=== PATIENT | female | born 1980 | race Two or more races ===

== ENCOUNTER 2025-04-08 10:00 | Day surgery (SDC) | payer OTHER ==
[2025-03-18 08:31] VITALS: BP 128/86
[2025-03-18 08:52] LABS: BASO % 0.9 % (0.1-1.2); EOS # 0.18 (0.04-0.54); EOS % 2.6 % (0.7-7.0); LYMPH # 1.71 (1.18-3.74); LYMPH % 24.6 % (19.3-53.1); MEAN PLATELET VOLUME 10.60 fl (9.4-12.4); MONO # 0.47 (0.24-0.82); MONO % 6.8 % (4.7-12.5); NEUT # 4.53 (1.56-6.13); NEUT % 65.0 % (34.0-71.1); RED CELL DISTRIBUTION WIDTH 11.5 % (11.6-14.4)
[2025-03-18 08:55] LABS: URINE APPEARANCE Clear; URINE BILIRRUBIN Negative (NEGATIVE); URINE BLOOD Negative; URINE COLOR Yellow; URINE GLUCOSE Negative (NEGATIVE); URINE KETONE Negative (NEGATIVE); URINE LEUKOCYTE Negative; URINE NITRATE Negative; URINE PROTEIN Negative (NEGATIVE); URINE UROBILINOGEN 0.2 E.U./dl
[2025-03-18 08:59] LABS: URINE EPITHELIAL CELLS 14.3 uL (0.0-38.8); URINE RBC 12.4 uL (0.0-20.8); URINE WBC 27.2 uL (0.0-23.2)
[2025-03-18 09:15] LABS: INR 0.98
[2025-03-18 09:21] LABS: URINE CAST 0.29 uL (0.0-1.40)
[2025-03-18 09:22] LABS: URINE CRYSTALS MODERATE /HPF
[2025-03-18 09:26] LABS: ALT/SGPT 61.0 U/L (12-78); AST/SGOT 19.0 U/L (15-37); BILIRUBIN TOTAL 0.83 mg/dL (0.3-1.2); BUN CREA RATIO 22.0 (7.0-25.0); CREATININE SERUM 0.58 mg/dL (0.55-1.02); GFR 112.42; GLOBULINA 3.6 G/DL (2.4-3.5); GLUCOSE FASTING 105.0 mg/dL (65-100); OSMOLALITY SERUM 284.0 MOSM/KG (275-295)
[~2025-04-08] VITALS: Ht 160 cm; Wt 63.0 kg
[~2025-04-08 10:00] MED LIST: ROSUVASTATIN CA10 MG
[2025-04-08] MEDS ORDERED: CEFAZOLIN SODIUM 1,000 MG VIAL ONE (11:44)
[2025-04-08] MEDS ORDERED: SUGAMMADEX SODIUM 200 MG/2 ML VIAL IV ONE (14:33)
== END 2025-04-08 17:20 | disposition home or self-care (01) ==
LOC: CIR.AMB 10:00
PROVIDERS: ATTEND Surgery
DX: K43.6 Other and unspecified ventral hernia with obstruction, without gangrene (principal)
CPT/HCPCS: 49594; C1781